=== PATIENT | male | born 1955 | race Caucasian/White ===

== ENCOUNTER → 2022-01-29 | Outpatient (CLI) | payer MEDICARE, OTHER ==
--- NOTE | 2022-01-29 14:02 | Diagnostic Imaging Report ---
INDICATION: Shortness of breath. COMPARISON: Baseline exam. EXAMINATION: PA chest. FINDINGS: The lungs are well-aerated without air-trapping. The heart is not enlarged. No pulmonary edema. No pleural effusion or pneumothorax. No hilar adenopathy. No acute bony changes. There do appear to be old deformed rib fractures of the 6th, 7th, and 8th ribs posterolaterally. IMPRESSION: 1. No acute findings in the lungs. No evidence of congestive failure. 2. Deformity of the posterolateral left 6th, 7th, and 8th ribs. Clinical correlation for acuity. These do appear to be most likely healed and chronic. Dictated by: Dictated on workstation # [id number]
== END ==
LOC: RAD FS 09:48
PROVIDERS: ATTEND Nurse Practitioner Family
DX: R06.02 Shortness of breath (principal)
CPT/HCPCS: 71045